=== PATIENT | female | born 1980 | race Two or more races ===

== ENCOUNTER 2017-02-26 05:44 | Inpatient (IN) | payer OTHER ==
[~2017-02-26] VITALS: Ht 165.1 cm; Wt 89.0 kg
[~2017-02-26 05:44] MED LIST: CYCL-319 PO; HYDR-906 PO; NAPR-260 PO; OMEP20CA16 PO
[2017-02-26 05:49] VITALS: BP 143/85; PULSE 86; RESP 18; Ht 165.1 cm; Wt 89.0 kg
[2017-02-26] MEDS ORDERED: FERR134T PO (05:52)
[2017-02-26] MEDS ORDERED: PRENAT PO (05:52)
--- NOTE | 2017-02-26 06:29 | TRIAGE ---
OB Triage Datetime Report Generated by CPN: 02/26/2017 06:29 Datetime: 02/26/2017 06:08 Assessment Type: Admission Assessment Vaginal Bleeding: None Maternal Assessment Level of Consciousness: Fully Conscious DTR's/Clonus: DTRs 2+; No Clonus Headache: Denies Blurred Vision: No Respiratory Effort: Unlabored; Regular Rhythm; Equal Expansion Breath Sounds, Left: Clear and Equal Breath Sounds, Right: Clear and Equal Nausea/Vomiting: Denies RUQ Epigastric Pain: Denies Lower Extremities Edema: Bilateral Lower Extremities Degree: 1+ Upper Extremities Edema: None Degree: None Facial Edema: None Fall Risk Assessment History of Falling: (0) No Secondary Diagnosis: (0) No Ambulatory Aid: (0) Bedrest/Nurse Assist IV Therapy: (0) No Gait: (0) Normal/Bedrest/Immobile Mental Status: (0) Oriented to Own Ability Fall Score: 0 Fall Risk Score Definition: No Risk: No action required Pain Assessment Pain Scale: 3 Pain Presence: Intermittent Pain Type: Contraction Pain Location: Abdomen Pain Goal: 2 Membrane Status: Ruptured Membranes Ruptured Date/Time: 02/26/2017 04:50 Membranes Rupture Method: Spontaneous Amniotic Fluid Color: Clear Datetime: 02/26/2017 05:56 Stage of : OB Triage Assessment Type: Triage Maternal Assessment Level of Consciousness: Fully Conscious DTR's/Clonus: DTRs 2+; No Clonus Headache: Denies Blurred Vision: No Respiratory Effort: Unlabored; Regular Rhythm; Equal Expansion Nausea/Vomiting: Denies Lower Extremities Edema: Bilateral Lower Extremities Degree: 1+ Upper Extremities Edema: None Degree: None Facial Edema: None Temperature Route: Oral Fall Risk Assessment History of Falling: (0) No Secondary Diagnosis: (0) No Ambulatory Aid: (0) Bedrest/Nurse Assist IV Therapy: (0) No Gait: (0) Normal/Bedrest/Immobile Mental Status: (0) Oriented to Own Ability Fall Score: 0 Fall Risk Score Definition: No Risk: No action required Pain Assessment Pain Scale: 3 Pain Presence: Intermittent Pain Type: Contraction Pain Location: Abdomen Pain Goal: 2 Vaginal Exam Dilatation (cms): 3.0 Effacement (%): 70 Station: -3 Exam By: TM Datetime: 02/26/2017 05:54 Time of Arrival: 02/26/2017 06:06 EGA: 37.2 Arrived By: Wheelchair Arrived From: Home Chief Complaint: RUPTURED MEMBRANES Movement: Present Contractions: Irregular Time Contractions Began: 02/26/2017 05:00 Rupture of Membranes: Ruptured Vaginal Bleeding: None Vaginal Discharge: Denies Recent Sexual Intercouse: Denies Abdominal Trauma: Not Applicable Patient Complaints: Contractions Initial Plan: SVE Datetime: 02/26/2017 05:47 Pain Assessment Pain Scale: 3 Pain Presence: Intermittent Pain Type: Contraction Pain Location: Abdomen; Back Pain Goal: 2 Pain Relief Measures: Comfort Measures Vaginal Exam Dilatation (cms): 3.0 Effacement (%): 70 Station: -3 Exam By: TM Membrane Status: Ruptured Membranes Rupture Method: Spontaneous Amniotic Fluid Color: Clear Amniotic Fluid Amount: Large
[2017-02-26] MEDS ORDERED: LIDOCAINE 1% (MPF) 30 ML INJ INJ PRN (06:30)
[2017-02-26] MEDS ORDERED: OXYTOCIN 30 UNITS/LR 500 ML IV PRN ×2 (06:30→21:30)
[2017-02-26] MEDS ORDERED: METHYLERGONOVINE 0.2 MG INJ IM PRN ×2 (06:30→21:30)
[2017-02-26] MEDS ORDERED: OXYTOCIN 30 UNITS/LR 500 ML IV SCH ×3 (06:30→09:30)
[2017-02-26] MEDS ORDERED: CARBOPROST 250 MCG INJ IM PRN ×2 (06:30→21:30)
[2017-02-26] MEDS ORDERED: MISOPROSTOL 200 MCG TAB PR PRN ×2 (06:30→21:30)
[2017-02-26] MEDS ORDERED: AMPICILLIN 2 GM/NS (PMX) 100 ML IV ONE (06:30)
[2017-02-26] MEDS ORDERED: DEXTROSE 5%-LR 1,000 ML IV PRN (06:30)
[2017-02-26] MEDS: LACTATED RINGER'S 1,000 ML IV SCH ×3 (06:42→20:36)
[2017-02-26 06:44] LABS: ADD SCAN DIFF NO
[2017-02-26] MEDS: LABETALOL 100 MG TAB PO SCH ×2 (06:45→21:00)
[2017-02-26 06:48] LABS: BASOPHIL # 0.1 10^3/ul (0.0-0.1); BASOPHILS % 0.6 % (0.0-2.0); EOSINOPHILS # 0.1 10^3/ul (0.0-0.5); HEMATOCRIT 33.8 % (37.0-47.0); LYMPHOCYTES # 2.8 10^3/ul (0.8-2.9); LYMPHOCYTES % 26.1 % (15.0-51.0); MEAN CORPUSCULAR HEMOGLOBIN 23.8 pg (29.0-33.0); MEAN CORPUSCULAR HGB CONC 32.5 g/dl (32.0-37.0); MEAN PLATELET VOLUME 11.6 fl (7.4-10.4); MONOCYTE # 1.1 10^3/ul (0.3-0.9); MONOCYTES % 10.5 % (0.0-11.0); NEUTROPHIL # 6.4 10^3/ul (1.6-7.5); NEUTROPHILS % 59.7 % (39.0-77.0); PLATELET COUNT 202 10^3/UL (140-415); RED BLOOD COUNT 4.63 10^6/ul (4.20-5.40); RED CELL DISTRIBUTION WIDTH 14.5 % (11.5-14.5); WHITE BLOOD COUNT 10.7 10^3/ul (4.8-10.8)
[2017-02-26 06:51] LABS: INR 0.93; PROTIME 12.5 Sec (12.2-14.2)
[2017-02-26 06:57] LABS: ALBUMIN 3.4 g/dl (3.3-4.9); ALBUMIN/GLOBULIN RATIO 1.03; BILIRUBIN,INDIRECT 0.2 mg/dl (0-1.1); BILIRUBIN,TOTAL 0.2 mg/dl (0.2-1.3); CALCIUM 9.6 mg/dl (8.4-10.2); CREATININE 0.51 mg/dl (0.44-1.00); TOTAL PROTEIN 6.7 g/dl (6.1-8.1); URIC ACID 3.5 mg/dl (3.1-7.9)
[2017-02-26] MEDS ORDERED: LACTATED RINGER'S 1,000 ML IV PRN (07:00)
[2017-02-26] MEDS ORDERED: BUTORPHANOL 2 MG INJ ONE (08:17)
[2017-02-26] MEDS ORDERED: BUTORPHANOL 2 MG INJ IV PRN (08:30)
[2017-02-26] MEDS ORDERED: AMPICILLIN 1 GM/NS (PMX) 50 ML IV SCH (10:30)
[2017-02-26] MEDS ORDERED: LACTATED RINGER'S 1,000 ML IV ONE (11:04)
[2017-02-26] MEDS ORDERED: KETOROLAC 30 MG INJ IV PRN (11:30)
[2017-02-26] MEDS ORDERED: NALOXONE (0.4 MG/ML) INJ IV PRN (11:30)
[2017-02-26] MEDS ORDERED: CITRIC ACID/NA CITRATE 30 ML CUP PO ONE (11:30)
[2017-02-26] MEDS ORDERED: ONDANSETRON 4 MG INJ IV PRN (11:30)
[2017-02-26] MEDS ORDERED: PROCHLORPERAZINE 10 MG INJ IV PRN (11:30)
[2017-02-26] MEDS ORDERED: morphine 2 MG INJ IV PRN ×2 (11:30)
[2017-02-26] MEDS ORDERED: DIPHENHYDRAMINE 50 MG INJ IV PRN (11:30)
[2017-02-26] MEDS ORDERED: ONDANSETRON 4 MG INJ IV ONE (11:30)
[2017-02-26] MEDS ORDERED: FENTAnyl 2MCG/ML-ROPIV 0.2% 100 ML BAG EPI SCH (11:30)
[2017-02-26] MEDS ORDERED: AMPICILLIN 2 GM/NS (PMX) 100 ML IVPB ONE (15:30)
[2017-02-26] MEDS ORDERED: ACETAMINOPHEN 325 MG TAB PO PRN (19:00)
[2017-02-26] MEDS ORDERED: AMPICILLIN 1 GM/NS (PMX) 50 ML IVPB SCH (20:00)
[2017-02-26] MEDS: LACTATED RINGER'S 1,000 ML IV* SCH (21:15)
[2017-02-26] MEDS ORDERED: LANOLIN 7 GM TUBE TOP PRN (21:30)
[2017-02-26] MEDS ORDERED: BENZOCAINE 20% 56 ML SPRAY TOP PRN (21:30)
--- NOTE | 2017-02-26 21:55 | LDN ---
Date/Time of Note Date/Time of Note DATE: 02/26/17 TIME: 21:48 Delivery Summary Vacuum assisted vaginal delivery for decels of a viable baby girl weighing 2880 grams or 6# 6oz, 19.5" long and with Apgars of 6/8. Weeks of Gestation 37w 2d Assisted Vaginal Delivery: Vacuum Placenta Delivered: Spontaneously Meconium: none Episiotomy: No Perineal laceration: 2 Laceration repair: Second degree perineal laceration Anesthesia type: Epidural Estimated blood loss: 230 All needle counts correct: Yes Any foreign bodies felt in the: No (vagina) Problems: Infant Delivery Information Sex Sex: female Apgars 1 Minute: 6 5 Minute: 8 Suctioning Nose & mouth suctioned at valeria: Yes Delee suction performed: No Umbilical Cord Umbilical cord with: 3 Vessels Cord presentations: no nuchal cord Cord Blood was obtained: Yes Mother & Baby Disposition Disposition Mom & Baby to Maternity; Good: Yes Baby to NICU: No NAJMA MERLOS MD February 26, 2017 21:55
--- NOTE | 2017-02-26 22:09 | HP ---
Date/Time of Note Date/Time of Note DATE: 02/26/17 TIME: 21:56 OB - History Hx of Present Free Text/Dictation 36 y.o. A2 with an IUP at 37w 2d admitted with ruptured membranes. Estimated Due Date: Mar 17, 2017 : 3 Para: 0 Spontaneous : 2 Ultrasounds: Normal mid trimester US Obstetrical Complications: Gestational Diabetes Medical Complications: None Past Family/Social History * Past Medical, Surgical, Family and Obstetric Histories reviewed from chart. RPR/VDRL: Negative GBS Status: Negative OB Admission Exam Vital Signs Vital Signs Vital Signs Date Time Temp Pulse Resp B/P Pulse Ox O2 Delivery O2 Flow Rate FiO2 02/26/17 05:49 98.0 86 18 143/85 Room Air Physical Exam HEENT: WNL Heart: Rhythm Normal Lungs: Clear Abdomen: WNL Extremities: Normal Reflexes: Normal Cervical Dilatation: 3cm Effacement: 75% Station: -3 Membranes: Ruptured Amniotic Fluid: Clear Accelerations: Accelerations Present Decelerations: No Decelerations Varibility: Moderate Contractions on Admission: 6-10 Minutes Apart Last 72 hourBlood Glucose Bedside Glucose - 72 Hours Test 02/26/17 13:23 Bedside Glucose 90mg/dL (70-220) Last 72 hours Lab Results CBC & BMP 02/26/17 05:55 Liver Function Test 02/26/17 05:55 Alanine Aminotransferase (ALT/SGPT) 27 Albumin 3.4 Alkaline Phosphatase 128 H Aspartate Amino Transf (AST/SGOT) 28 Direct Bilirubin 0.00 Total Protein 6.7 OB Assessment/Plan Reason for admission: rupture of membranes Other Assessment: GDM Plan: Other (Augmentation) Induction Method: per Pitocin Protocol NAJMA MERLOS MD February 26, 2017 22:06
[2017-02-26] MEDS: OXYTOCIN 30 UNITS/LR 500 ML IV SCH (22:22)
--- NOTE | 2017-02-26 23:10 | DELSUM ---
Delivery Summary A-C Datetime Report Generated by CPN: 02/26/2017 23:09 DELIVERY PERSONNEL Envelope Cutter: Long, Briana MATERNAL INFORMATION Delivery Anesthesia: Epidural Medications in Delivery: PITOCIN 30 UNITS INLR Estimated Blood Loss (ml): 230 Placenta Cultured: No Maternal Complications: None; Other Other Maternal Complications: GDM diet controlled and BG WNL during day shift LABOR SUMMARY EDC: 03/17/2017 00:00 No. Babies in Womb: 1 Attempted: No Labor Anesthesia: Epidural LABOR INFORMATION Onset of Labor: 02/26/2017 04:50 Oxytocin: N/A Group B Beta Strep: Negative Group B Beta Strep: Negative Antibiotics # of Doses: AMPICILLIN 2 Antibiotics Time of Last Dose: 02/26/2017 19:30 Steroids Given: None Reason Steroids Not Administered: Not Applicable MEMBRANES Membranes Rupture Method: Spontaneous Membranes Rupture Method: Spontaneous Rupture of Membranes: 02/26/2017 04:50 Length of Rupture (hr): 15.98 Amniotic Fluid Color: Clear Amniotic Fluid Color: Clear Amniotic Fluid Amount: Large Amniotic Fluid Odor: None STAGES OF LABOR Stage 3 hr: 0 Stage 3 min: 1 Total Time in Labor hr: 16 Total Time in Labor min: 0 VAGINAL DELIVERY Episiotomy: Median Laceration Extension: Second Degree Laceration Type: Perineal Laceration Repair: Yes Initial Vag Sponge Count: 20 Final Vag Sponge Count: 20 Initial Vag Sharps Count: 1 Final Vag Sharps Count: 2 Sponge Count Correct: Yes Sharps Count Correct: Yes BABY A INFORMATION Infant Delivery Date/Time: 02/26/2017 20:49 Method of Delivery: Vaginal Born in Route : No : N/A Forceps: N/A Vacuum Extraction: Successful Shoulder Dystocia : No SHOULDER DYSTOCIA BABY A Delivery Date/Time: 02/26/2017 20:49 PRESENTATION/POSITION BABY A Presentation: Cephalic Cephalic Presentation: Vertex Vertex Position: Left Occipital Anterior Breech Presentation: N/A PLACENTA INFORMATION BABY A Placenta Delivery Time : 02/26/2017 20:50 Placenta Method of Delivery: Spontaneous Placenta Status: Delivered SCORES BABY A Heart Rate 1 min: >100 bpm Resp Effort 1 min: Slow, Irregular Reflex Irritability 1 min: Cough/Sneeze/Pulls Away Muscle Tone 1 min: Some Flexion of Extrem Color 1 min: Blue/Pale Resuscitation Effort 1 min: Tactile Stimulation SCORE 1 MIN: 6 Heart Rate 5 min: >100 bpm Resp Effort 5 min: Good Cry Reflex Irritability 5 min: Cough/Sneeze/Pulls Away Muscle Tone 5 min: Some Flexion of Extrem Color 5 min: Body [place], Extremit Blue Resuscitation Effort 5 min: Tactile Stimulation SCORE 5 MIN: 8 INFORMATION BABY A Gestational Age at Delivery: 37.2 Gestational Status: Early Term- 37- 38.6 Weeks Infant Outcome : Liveborn Condition : Stable Sex: Female IDENTIFICATION/MEDS BABY A ID Band Number: [id number] ID Band Location: Right Leg; Left Arm Sensor Applied: Yes Sensor Number: [id number] Sensor Location : Cord Clamp Vitamin K Given : Not Given Erythromycin Given: Not Given WEIGHT/LENGTH BABY A Infant Birthweight (gm): 2880 Infant Weight (lb): 6 Infant Weight (oz): 6 Length (in): 19.50 Length (cm): 49.53 CORD INFORMATION BABY A No. Cord Vessels: 3 Nuchal Cord : N/A Cord Blood Taken: Yes Infant Suction: Mouth; Nose ASSESSMENT BABY A Infant Complications: Extended Tachycardi; None Complications- Other: DECELS WHILE PUSHING Physical Findings at Delivery: Other Physical Findings- Other: VACCUM X1 Infant Respirations: Intercostal Retractions Retail Shift Supervisor/ALS Called : No Infant Care By: SORAIDA GRIMM RN AND Lucille MACDONALD RN Transferred To: Remains with Mother
[2017-02-26] MEDS: IBUPROFEN 600 MG TAB PO SCH (23:20)
[2017-02-27 01:00] VITALS: BP 126/58; PULSE 92; RESP 16
[2017-02-27] MEDS: OXYTOCIN 30 UNITS/LR 500 ML IV SCH (01:15)
[2017-02-27] MEDS: OXYCODONE/ASPIRIN (4.88/325) TAB PO PRN ×2 (01:50→15:36)
[2017-02-27 04:00] VITALS: BP 107/87; PULSE 83; RESP 19
[2017-02-27] MEDS: IBUPROFEN 600 MG TAB PO SCH ×3 (05:28→18:11)
[2017-02-27] MEDS: LACTATED RINGER'S 1,000 ML IV* SCH ×2 (05:28→13:15)
[2017-02-27 06:30] LABS: ADD SCAN DIFF NO
[2017-02-27 06:46] LABS: ABNORMAL IP MESSAGE 1; BASOPHIL # 0.1 10^3/ul (0.0-0.1); BASOPHILS % 0.3 % (0.0-2.0); EOSINOPHILS # 0.1 10^3/ul (0.0-0.5); EOSINOPHILS % 0.4 % (0.0-7.0); HEMATOCRIT 28.9 % (37.0-47.0); HEMOGLOBIN 9.5 g/dl (12.0-16.0); LYMPHOCYTES # 2.3 10^3/ul (0.8-2.9); LYMPHOCYTES % 11.6 % (15.0-51.0); MEAN CORPUSCULAR HEMOGLOBIN 23.9 pg (29.0-33.0); MEAN CORPUSCULAR HGB CONC 32.9 g/dl (32.0-37.0); MEAN CORPUSCULAR VOLUME 72.6 fl (82.0-101.0); MEAN PLATELET VOLUME 11.6 fl (7.4-10.4); MONOCYTE # 1.6 10^3/ul (0.3-0.9); MONOCYTES % 8.2 % (0.0-11.0); NEUTROPHIL # 15.7 10^3/ul (1.6-7.5); NEUTROPHILS % 78.4 % (39.0-77.0); PLATELET COUNT 172 10^3/UL (140-415); RED BLOOD COUNT 3.98 10^6/ul (4.20-5.40); RED CELL DISTRIBUTION WIDTH 14.6 % (11.5-14.5)
[2017-02-27 07:40] VITALS: BP 107/55; PULSE 84; RESP 17
[2017-02-27 12:00] VITALS: BP 114/55; PULSE 86; RESP 18
[2017-02-27] MEDS ORDERED: BISACODYL (EC) 5 MG TAB PO ONE (16:00)
[2017-02-27 16:25] VITALS: BP 131/68; PULSE 86; RESP 17
[2017-02-27] MEDS: CEPHALEXIN 500 MG CAP PO SCH (18:11)
--- NOTE | 2017-02-27 18:20 | QN ---
Documentation Comment ppd1 pt doing well co of some abd distention/no bm vss exam wnl a/p ppd1 abd distention dulcolax po continue care USAMA GUZMÁN MD February 27, 2017 18:20
[2017-02-27 19:45] VITALS: BP 132/67; PULSE 85; RESP 18
[2017-02-27 21:16] LABS: ADD UMIC YES; URINE BILIRUBIN (Dip) NEGATIVE (NEGATIVE); URINE BLOOD (Dip) 2+ (NEGATIVE); URINE COLOR LT. YELLOW (YELLOW); URINE GLUCOSE (Dip) NEGATIVE (NEGATIVE); URINE KETONES (Dip) NEGATIVE (NEGATIVE); URINE LEUKOCYTE ESTERASE (Dip) TRACE (NEGATIVE); URINE NITRITE (Dip) NEGATIVE (NEGATIVE); URINE TOTAL PROTEIN (Dip) NEGATIVE (NEGATIVE); URINE UROBILINOGEN (Dip) 0.2 E.U./dL (0.1-1.0)
[2017-02-27 21:27] LABS: BACTERIA,URINE FEW; SQUAMOUS EPITHELIAL CELL,UR FEW
[2017-02-27] MEDS: DOCUSATE SODIUM 100 MG CAP PO SCH (22:01)
[2017-02-28] MEDS: IBUPROFEN 600 MG TAB PO SCH ×3 (00:01→11:27)
[2017-02-28] MEDS: CEPHALEXIN 500 MG CAP PO SCH ×3 (00:01→11:27)
[2017-02-28 04:00] VITALS: BP 129/76; PULSE 76; RESP 20
[2017-02-28 07:19] LABS: ADD SCAN DIFF NO
[2017-02-28 07:29] LABS: BASOPHIL # 0.1 10^3/ul (0.0-0.1); BASOPHILS % 0.5 % (0.0-2.0); EOSINOPHILS # 0.2 10^3/ul (0.0-0.5); EOSINOPHILS % 1.4 % (0.0-7.0); HEMATOCRIT 29.9 % (37.0-47.0); HEMOGLOBIN 9.6 g/dl (12.0-16.0); LYMPHOCYTES # 2.6 10^3/ul (0.8-2.9); LYMPHOCYTES % 19.7 % (15.0-51.0); MEAN CORPUSCULAR HEMOGLOBIN 23.7 pg (29.0-33.0); MEAN CORPUSCULAR HGB CONC 32.1 g/dl (32.0-37.0); MEAN CORPUSCULAR VOLUME 73.8 fl (82.0-101.0); MONOCYTE # 1.1 10^3/ul (0.3-0.9); MONOCYTES % 8.4 % (0.0-11.0); NEUTROPHIL # 9.2 10^3/ul (1.6-7.5); PLATELET COUNT 185 10^3/UL (140-415); RED BLOOD COUNT 4.05 10^6/ul (4.20-5.40); RED CELL DISTRIBUTION WIDTH 14.8 % (11.5-14.5); WHITE BLOOD COUNT 13.4 10^3/ul (4.8-10.8)
[2017-02-28 07:40] VITALS: BP 136/74; PULSE 79; RESP 18
[2017-02-28] MEDS ORDERED: DIPHTH/TET/ACEL PERTUSS (ADULT) 0.5 ML VIAL IM* ONE (09:00)
[2017-02-28] MEDS: DOCUSATE SODIUM 100 MG CAP PO SCH (09:12)
--- NOTE | 2017-02-28 12:24 | PD.PPDC ---
INJECTION MOLD TECHNICIAN Discharge Instruction Condition Patient Condition: Good Diet Diet: Resume Regular Diet Activity/Restrictions Activity: Normal Activity May Shower Restrictions: No Exercising No Lifting No Driving No Sexual Activity Nothing in the Vagina No [place] No Tampons, douche Follow-up Follow-up with Physician: 6, Week/Weeks Return to clinic for VENDING TECHNICIAN Instructions: Fever greater than 101 Chills Worsening abdominal pain Excessive Vaginal Bleeding More than 2 pads per hour Unable to tolerate diet OB Instructions: Breast Tenderness Depression Blurried Vision Headache Surgical Instructions: Incisional Drainage Incisional Redness LIDYA BLACK MD February 28, 2017 12:24
--- NOTE | 2017-02-28 12:30 | DS ---
Date/Time of Note Date/Time of Note DATE: 02/28/17 TIME: 12:25 Discharge Summary Admission/Discharge Info Admit Date/Time February 26, 2017 at 06:00 Discharge Date/Time 01/2917 Final Diagnosis term home delivered Patient Condition: Good Procedures vaginal delivery Hx of Present Illness multigravida came in labor with rom delivered uneventfully Hospital Course patient had white count elevation for which she was placed on oral keflex discharged home with near normal wbc with oral keflex Home Meds Active Scripts Cyclobenzaprine Hcl* (Cyclobenzaprine Hcl*) 10 Mg Tablet, 10 MG PO TID, #15 TAB Prov:KIMBERLI,GLEN DO 05/28/16 Hydrocodone/Acetaminophen (Tom[place] 5-325 Tablet) 1 Each Tablet, 1 TAB PO Q6H Y for PAIN, #7 TAB Prov:KIMBERLIGLEN DO 05/28/16 Omeprazole* (Omeprazole*) 20 Mg Capsule.dr, 20 MG PO BID, #20 Prov:KIMBERLIGLEN DO 05/28/16 Naproxen* (Naprosyn*) 500 Mg Tablet, 500 MG PO BID Y for PAIN AND/OR INFLAMMATION, #20 TAB Prov:KIMBERLI,GLEN 05/28/16 Reported Medications Ferrous Sulfate (Iron) 134 Mg Tablet, 134 MG PO, TAB 02/26/17 Multivit/Min/Fol Ac/Iron/Pren* ( S*) 1 Tab Tab, 1 TAB PO DAILY, TAB 02/26/17 Follow-up Plan see me in office PRN OR 6 weeks Primary Care Provider Care Physician No Primary Time spent on discharge: < 30 minutes Pending Labs Laboratory Tests Test 02/27/17 20:35 02/28/17 06:33 Urine Color LT. YELLOW (YELLOW) Urine Clarity CLEAR (CLEAR) Urine pH 6.0 (5.0-9.0) Urine Specific [place] <=1.005 (1.003-1.030) Urine Ketones NEGATIVE (NEGATIVE) Urine Nitrite NEGATIVE (NEGATIVE) Urine Bilirubin NEGATIVE (NEGATIVE) Urine Urobilinogen 0.2 E.U./dL (0.1-1.0) Urine Leukocyte Esterase TRACE (NEGATIVE) Urine Microscopic RBC 5-10/HPF (0) Urine Microscopic WBC 0-2/HPF (0) Urine Squamous Epithelial Cells FEW Urine Bacteria FEW Urine Hemoglobin 2+ (NEGATIVE) Urine Glucose NEGATIVE% (NEGATIVE) Urine Total Protein NEGATIVE (NEGATIVE) White Blood Count 13.410^3/ul (4.8-10.8) Red Blood Count 4.0510^6/ul (4.20-5.40) Hemoglobin 9.6g/dl (12.0-16.0) Hematocrit 29.9% (37.0-47.0) Mean Corpuscular Volume 73.8fl (82.0-101.0) Mean Corpuscular Hemoglobin 23.7pg (29.0-33.0) Mean Corpuscular Hemoglobin Concent 32.1g/dl (32.0-37.0) Red Cell Distribution Width 14.8% (11.5-14.5) Platelet Count 72978^3/UL (140-415) Mean Platelet Volume 12.0fl (7.4-10.4) Neutrophils % 69.0% (39.0-77.0) Lymphocytes % 19.7% (15.0-51.0) Monocytes % 8.4% (0.0-11.0) Eosinophils % 1.4% (0.0-7.0) Basophils % 0.5% (0.0-2.0) Nucleated Red Blood Cells % 0.0/100WBC (0.0-0.0) Neutrophils # 9.210^3/ul (1.6-7.5) Lymphocytes # 2.610^3/ul (0.8-2.9) Monocytes # 1.110^3/ul (0.3-0.9) Eosinophils # 0.210^3/ul (0.0-0.5) Basophils # 0.110^3/ul (0.0-0.1) Nucleated Red Blood Cells # 0.010^3/ul (0.0-0.0) Microbiology Date/Time Source Procedure Growth Status 02/27/17 20:35 Clean Catch Urine Urine Culture - Preliminary NO GROWTH AFTER 24 HOURS Resulted LIDYA BLACK MD February 28, 2017 12:30
== END 2017-02-28 15:55 | disposition home or self-care (01) | DRG 775 ==
LOC: OBT 05:44 → L-D 05:45 → OBT 05:55 → L-D 06:00 → PP1 02-27 01:01
PROVIDERS: ADMIT Obstetrics & Gynecology; ATTEND Obstetrics & Gynecology
PROC: 10D07Z6 Extraction of Products of Conception, Vacuum, Via Natural or Artificial Opening (ICD-10-PCS; principal; 2017-02-26)
PROC: 0KQM0ZZ Repair Perineum Muscle, Open Approach (ICD-10-PCS; 2017-02-26)
DX: O24.429 Gestational diabetes mellitus in childbirth, unspecified control (principal); E66.9 Obesity, unspecified; Z3A.37 37 weeks gestation of pregnancy; Z37.0 Single live birth; O76 Abnormality in fetal heart rate and rhythm complicating labor and delivery; O70.1 Second degree perineal laceration during delivery; O99.214 Obesity complicating childbirth; Z68.32 Body mass index [BMI] 32.0-32.9, adult; O99.52 Diseases of the respiratory system complicating childbirth; J45.909 Unspecified asthma, uncomplicated
CPT/HCPCS: 62319; 80053; 81001; 82962; 84560; 85025; 85610; 85730; 86592; 86900; 86901; 87086; 87340; 90715; 99464; A4310; G0463; J0290; J0595; J2590; J3010; J7120